=== PATIENT | female | born 1975 | race Caucasian/White ===

== ENCOUNTER 2019-05-28 14:09 | Emergency (ER) | payer SELFPAY ==
[2019-05-28] MEDS ORDERED: KETOROLAC TROMETHAMINE INJ/PF 30 MG/1 ML SDV IV ONE (15:09)
[2019-05-28] MEDS ORDERED: PROCHLORPERAZINE EDISYLATE INJ 10 MG/2 ML VIAL IV ONE (15:09)
[2019-05-28] MEDS ORDERED: DIPHENHYDRAMINE HCL 50 MG/ML VIAL IV ONE (15:09)
--- NOTE | 2019-05-28 15:11 | ER Document Report ---
ED Medical Screen (RME) - General Chief Complaint: Eye Pain Stated Complaint: EYE PAIN/DIZZINESS Time Seen by Provider: 05/28/19 15:01 - HPI Notes: 05/28/19 15:09 Patient is a 43-year-old female with a history of migraines who presents for 2 concerns. Patient states that she has had a migraine for the past week with light sensitivity and dizziness which is normal for her headaches. Patient states that this headache is not the worst of her life and did not start as a thunderclap. Overall her headache is pretty typical of previous migraines that is not being resolved with conservative measures. Patient states that she also has an irritated red eye that began this morning when she woke up, but patient has had matting to the eye over the past couple days and some discharge associated. She does not wear contact lenses. No fever. PHYSICAL EXAMINATION: GENERAL: Well-appearing, well-nourished and in no acute distress. A&Ox4. Answers questions appropriately. HEAD: Atraumatic, normocephalic. Non-tender. EYES: Pupils equal round and reactive to light, extraocular movements intact, sclera anicteric, rt eye injected, scant discharge. No nystagmus. NEUROLOGICAL: NIH 0. GCS 15. Cranial nerves grossly intact. Normal speech, normal gait. Normal sensory, motor exams. PSYCH: Normal mood, normal affect. SKIN: Warm, Dry, normal turgor, no rashes or lesions noted. - Related Data Allergies/Adverse Reactions: bee pollen Allergy (Verified 05/28/19 15:00) Past Medical History - Social History Chew tobacco use (# tins/day): No Drug Abuse: None Physical Exam - Vital signs Vitals: Temp Pulse Resp BP Pulse Ox 98.3 F 77 16 130/73 H 98 05/28/19 14:28 05/28/19 14:28 05/28/19 14:28 05/28/19 14:28 05/28/19 14:28 Course - Vital Signs Vital signs: Temp Pulse Resp BP Pulse Ox 98.3 F 77 16 130/73 H 98 05/28/19 14:28 05/28/19 14:28 05/28/19 14:28 05/28/19 14:28 05/28/19 14:28
[2019-05-28] MEDS ORDERED: TETRACAINE HCL 0.5% OPH SOLN 4 ML ONE (16:53)
[2019-05-28] MEDS ORDERED: TETRACAINE HCL 0.5% OPH SOLN 4 ML OD ONE (17:03)
[2019-05-28] MEDS ORDERED: POLYMYXIN B SULFATE/TMP OPH SOLN (10 ML/ER DISP) OD PRN (17:09)
[2019-05-28] MEDS ORDERED: DEXAMETHASONE SOD PHOS INJ 10 MG/1 ML VIAL IV ONE (17:13)
--- NOTE | 2019-05-28 17:16 | ER Document Report ---
ED General - General Chief Complaint: Eye Pain Stated Complaint: EYE PAIN/DIZZINESS Time Seen by Provider: 05/28/19 15:01 Notes: 43-year-old female presents emergency department complaining of 1 of her typical migraines for the past week but is been getting progressively worse. Denies any fevers or neck pain. States it is not the worst when she is ever had and it did not start as a thunderclap type headache. Complains that she has had some crusting of her right eye for the past week but today she woke up and it was crusted shut and she has pain when she moves her eye. Denies any blurry vision after she complains the crusting away. States it feels like a stabbing pain in the back of her eye. No trauma to the eye, denies wearing contacts. Also states that she has been having some dizziness and disequilibrium for the past week, today it was bad enough that it caused her to fall down the steps. Patient states the only thing she had from it was some left elbow pain and it does not hurt to move her elbow. TRAVEL OUTSIDE OF THE [place] IN LAST 30 DAYS: No - Related Data Allergies/Adverse Reactions: bee pollen Allergy (Verified 05/28/19 15:00) Past Medical History - General Information source: Patient - Social History Smoking Status: Never Smoker Chew tobacco use (# tins/day): No Frequency of alcohol use: Occasional Drug Abuse: None Family History: Reviewed & Not Pertinent Patient has suicidal ideation: No Patient has homicidal ideation: No Review of Systems - Review of Systems Constitutional: No symptoms reported EENT: See HPI Cardiovascular: See HPI, Dizziness - More disequilibrium than true dizziness. Respiratory: No symptoms reported Gastrointestinal: No symptoms reported Neurological/Psychological: See HPI -: Yes All other systems reviewed and negative Physical Exam - Vital signs Vitals: Temp Pulse Resp BP Pulse Ox 98.3 F 77 16 130/73 H 98 05/28/19 14:28 05/28/19 14:28 05/28/19 14:28 05/28/19 14:28 05/28/19 14:28 Interpretation: Normal - Notes Notes: GENERAL: Alert, interacts well. No acute distress. HEAD: Normocephalic, atraumatic EYES: Pupils equal, round and reactive to light, extraocular movements intact. Conjunctival injection on the right-hand side, some clear discharge noted, no crusting. Slit-lamp examination does not reveal any cell and flare in the anterior chamber, pain with movement of her eye until tetracaine is instilled, after tetracaine is instilled all pain has completely resolved. No pain with extraocular movements after tetracaine is instilled. No floor seen uptake on ex amination. No hyphema. No hypopyon. ENT: Oral mucosa moist, tongue midline. Clear fluid behind bulging tympanic membranes, injected tympanic membranes. NECK: Full range of motion, supple, trachea midline. LUNGS: Clear to auscultation bilaterally, no wheezes, rales or rhonchi, no respiratory distress. HEART: Regular rate and rhythm, no murmurs, gallops, rubs. ABDOMEN: Soft, nontender, nondistended, bowel sounds present in all 4 quadrants. EXTREMITIES: Moves all 4 extremities spontaneously, no edema, radial and dorsalis pedis pulses 2/4 bilaterally. No cyanosis. NEUROLOGICAL: Alert and oriented x3, normal speech, cranial nerves II through XII grossly intact, biceps and patellar DTRs 2+ bilaterally. [id number] and tauh-zt-apeh test intact, able to heel walk, toe walk and turn in a [place] without any dizziness or off-balance. PSYCH: Normal mood, normal affect. SKIN: Warm, Dry, normal turgor, no rashes or lesions noted. Course - Re-evaluation Re-evalutation: 05/28/19 17:13 Headache is completely resolved after medications, will give Decadron to prevent rebound headache. Silhouette examination consistent with conjunctivitis, treat with Polytrim eyedrops. No evidence of corneal abrasion. No evidence of orbital cellulitis as there is no pain with extraocular movement after her conjunctiva is numbed with tetracaine. Discharged to home. 05/28/19 17:15 The clear fluid behind her tympanic membranes is probably what is causing her to feel off balance. This is resolved as her headache has resolved. Patient will be treated with Nasonex and Claritin. - Vital Signs Vital signs: Temp Pulse Resp BP Pulse Ox 98.3 F 77 16 130/73 H 98 05/28/19 14:28 05/28/19 14:28 05/28/19 14:28 05/28/19 14:28 09/30/19 14:28 Discharge - Discharge Clinical Impression: Intractable migraine Qualifiers: Migraine type: without aura Status migrainosus presence: with status migrainosus Qualified Code(s): G43.011 - Migraine without aura, intractable, with status migrainosus Acute conjunctivitis, right eye Qualifiers: Acute conjunctivitis type: bacterial Qualified Code(s): H10.31 - Unspecified acute conjunctivitis, right eye Acute serous otitis media of both ears Qualifiers: Recurrence: non-recurrent Qualified Code(s): H65.03 - Acute serous otitis media, bilateral Condition: Stable Disposition: HOME, SELF-CARE Additional Instructions: Conjunctivitis You have an infection in your eye, commonly known as "pink eye." Conjunctivitis causes redness, mild discomfort, itching, and mattering on the eyelids. It is very contagious, so you must be careful to wash your hands after touching your face so you don't pass the infection on to others. Conjunctivitis is caused by both viruses and bacteria. It usually responds quickly to treatment with antibiotic drops. These should be placed in the eye as prescribed (usually every three to four hours while you're awake). If you wear contact lenses, don't put them in your eyes until the infection is cleared and you are no longer using the drops (unless your doctor advises you otherwise). Throw away any eye make-up that you have been using. It will harbor the infection. Should you develop increasing eye pain, severe swelling, decreased vision, or fail to improve as expected, please return for re-examination. Please use nasal saline rinses such as a NetiPot or NeilMed Sinus Rinses. 1 squirt of Nasonex per nostril twice a day to help decrease the fluid in your eyes. Please take Claritin as directed on the box [id number]. Prescriptions: Loratadine [Claritin 10 mg Tablet] 10 mg PO DAILY #30 tablet Mometasone Furoate [Nasonex] 1 spray NS Q12 #1 spray.pump
[2019-05-28 17:42] VITALS: BP 122/65
== END 2019-05-28 17:42 | disposition home or self-care (01) ==
LOC: ER 14:09
DX: H65.03 Acute serous otitis media, bilateral (principal); H10.31 Unspecified acute conjunctivitis, right eye; G43.011 Migraine without aura, intractable, with status migrainosus; R42 Dizziness and giddiness
CPT/HCPCS: J1200; J3490 ×2; J1885; J0780; J1100

== ENCOUNTER 2019-05-31 05:27 | Emergency (ER) | payer SELFPAY ==
[2019-05-31] MEDS ORDERED: TETRACAINE HCL 0.5% OPH SOLN 4 ML OD ONE (06:51)
[2019-05-31] MEDS ORDERED: HYDROCODONE/ACETAMINOPHEN 5-325 MG TABLET PO ONE (06:52)
--- NOTE | 2019-05-31 07:43 | ER Document Report ---
ED General - General Chief Complaint: Eye Pain Stated Complaint: EYE PAIN Time Seen by Provider: 05/31/19 06:37 TRAVEL OUTSIDE OF THE [place] IN LAST 30 DAYS: No - Related Data Allergies/Adverse Reactions: bee pollen Allergy (Verified 05/28/19 15:00) Past Medical History - Social History Smoking Status: Never Smoker Family History: Reviewed & Not Pertinent Patient has suicidal ideation: No Patient has homicidal ideation: No Physical Exam - Vital signs Vitals: Temp Pulse Resp BP Pulse Ox 97.6 F 71 16 119/78 96 05/31/19 05:40 05/31/19 05:40 05/31/19 05:40 05/31/19 05:40 05/31/19 05:40 Course - Vital Signs Vital signs: Temp Pulse Resp BP Pulse Ox 97.6 F 71 16 119/78 96 05/31/19 05:40 05/31/19 05:40 05/31/19 05:40 05/31/19 05:40 05/31/19 05:40 Discharge - Discharge Clinical Impression: Conjunctivitis Qualifiers: Conjunctivitis type: acute Acute conjunctivitis type: unspecified Laterality: right Qualified Code(s): H10.31 - Unspecified acute conjunctivitis, right eye Condition: Stable Disposition: HOME, SELF-CARE Instructions: Conjunctivitis ([facility]) Referrals: ANNIKA CHERY DO [ACTIVE STAFF] - Follow up as needed
[2019-05-31 07:59] VITALS: BP 111/69
--- NOTE | 2019-05-31 08:16 | ER Document Report ---
ED General - General Chief Complaint: Eye Pain Stated Complaint: EYE PAIN Time Seen by Provider: 05/31/19 06:37 Primary Care Provider: ANNIKA CHERY DO [ACTIVE STAFF] - Follow up as needed TRAVEL OUTSIDE OF THE [place] IN LAST 30 DAYS: No - HPI Notes: 43-year-old female who presents with right eye pain redness and conjunctivitis. Patient was seen here roughly 4 days ago at which time she was diagnosed and treated for a migraine as well as conjunctivitis. Given a prescription for Polytrim drops. She presented with gradual onset right sided eye pain and redness. Since then she has had progressive pain and redness and clear drainage. Denies any contact lens use, no corrective lenses. No injury. No history of glaucoma. Headache had resolved but she has severe right medial punctal pain and overall eye pain and redness. No other modifying factors, no other associated symptoms, no other provocative or palliative factors. - Related Data Allergies/Adverse Reactions: bee pollen Allergy (Verified 05/28/19 15:00) Past Medical History - Social History Smoking Status: Never Smoker Family History: Reviewed & Not Pertinent Patient has suicidal ideation: No Patient has homicidal ideation: No - Medical History Notes: No history of diabetes Review of Systems - Review of Systems Notes: Review of systems as in the history of present illness, otherwise negative x 10 systems. Physical Exam - Vital signs Vitals: Temp Pulse Resp BP Pulse Ox 97.6 F 71 16 119/78 96 05/31/19 05:40 05/31/19 05:40 05/31/19 05:40 05/31/19 05:40 05/31/19 05:40 - Notes Notes: General: Well developed . HEENT: Normocephalic, atraumatic. Pupils equal round reactive to light. No JVD. Chest: No trauma. Respiratory: Good air exchange, normal excursion. Cardiac: Regular rhythm. No murmurs or gallops. Abdomen: Soft, benign. Nondistended. Nontender. Back: No asymmetry or gross abnormality. Motor: Grossly normal power and tone. Neurologic: Alert, nonfocal. Cranial nerves II-12 are intact. Sensation intact. Vascular: Well perfused. Normal peripheral pulses. Skin: No petechiae or purpura. Eye: Right eye shows substantial conjunctival injection. Extraocular movements are intact. Pupil reactive. No hyphema, no hypopyon noted. Course - Re-evaluation Re-evalutation: 05/31/19 08:15 43-year-old female with severe conjunctivitis, unclear etiology. Additional ophthalmologic exam is completed. Patient underwent tetracaine staining. IOP is 13, floor seen staining shows no dye uptake, slit-lamp exam is difficult to achieve as she is uncooperative due to discomfort, no obvious cell or flare. Patient does not appear to have limbal sparing. There is concern over the potential for iritis. Patient is referred to ophthalmology this morning as an outpatient for continued work-up and evaluation. - Vital Signs Vital signs: Temp Pulse Resp BP Pulse Ox 97.7 F 60 16 111/69 98 05/31/19 07:57 05/31/19 07:57 05/31/19 05:40 05/31/19 07:57 05/31/19 07:57 Discharge - Discharge Clinical Impression: Conjunctivitis Qualifiers: Conjunctivitis type: acute Acute conjunctivitis type: unspecified Laterality: right Qualified Code(s): H10.31 - Unspecified acute conjunctivitis, right eye Condition: Stable Disposition: HOME, SELF-CARE Instructions: Conjunctivitis ([facility]) Referrals: ANNIKA CHERY DO [ACTIVE STAFF] - Follow up as needed
== END 2019-05-31 07:59 | disposition home or self-care (01) ==
LOC: ER 05:27
DX: H10.31 Unspecified acute conjunctivitis, right eye (principal); H57.11 Ocular pain, right eye
CPT/HCPCS: J3490

== ENCOUNTER → 2019-07-11 | Outpatient (CLI) | payer OTHER ==
[2019-07-11 08:43] LABS: ABSOLUTE EOSINOPHILS # (AUTO) 0.1 10^3/uL (0.0-0.6); ABSOLUTE LYMPHOCYTES (AUTO) 1.3 10^3/uL (0.5-4.7); ABSOLUTE MONOCYTES (AUTO) 0.3 10^3/uL (0.1-1.4); ABSOLUTE NEUT (AUTO) 2.8 10^3/uL (1.7-8.2); BASOPHILS % (AUTO) 0.6 % (0-2); EOSINOPHILS % (AUTO) 2.2 % (0-6); HEMATOCRIT 41.4 % (36.0-47.0); HEMOGLOBIN 14.6 g/dL (12.0-15.5); LYMPHOCYTES % (AUTO) 28.1 % (13-45); MEAN CORPUSCULAR HGB CONC 35.2 g/dL (32.0-36.0); MEAN CORPUSCULAR VOLUME 91 fl (80-97); MONOCYTES % (AUTO) 7.5 % (3-13); PLATELET COUNT 235 10^3/uL (150-450); RED BLOOD COUNT 4.55 10^6/uL (3.72-5.28); RED CELL DISTRIBUTION WIDTH 12.5 % (11.5-14.0); SEGMENTED NEUTROPHILS % (AUTO) 61.6 % (42-78); TOTAL CELLS COUNTED % (AUTO) 100 %; WHITE BLOOD COUNT 4.6 10^3/uL (4.0-10.5)
[2019-07-11 08:56] LABS: ALBUMIN 4.6 g/dL (3.5-5.0); ALKALINE PHOSPHATASE 90 U/L (38-126); ANION GAP 7 (5-19); ASPARTATE AMINO TRANSFERASE 29 U/L (14-36); BILIRUBIN,DIRECT 0.1 mg/dL (0.0-0.4); BILIRUBIN,TOTAL 0.7 mg/dL (0.2-1.3); BLOOD UREA NITROGEN 15 mg/dL (7-20); CALCIUM 9.3 mg/dL (8.4-10.2); CARBON DIOXIDE 30 mmol/L (22-30); CHLORIDE 101 mmol/L (98-107); GLUCOSE 119 mg/dL (75-110); POTASSIUM 4.6 mmol/L (3.6-5.0); TOTAL PROTEIN 7.5 g/dL (6.3-8.2); TRIGLYCERIDES 131 mg/dL (<150); URIC ACID 5.2 mg/dL (2.5-7.5)
[2019-07-11 09:07] LABS: DIRECT LDL 188 mg/dL (<100)
[2019-07-11 09:13] LABS: FREE T4 (FREE THYROXINE) 0.98 ng/dL (0.78-2.19)
[2019-07-11 09:27] LABS: THYROID STIMULATING HORMONE 0.8 uIU/mL (0.47-4.68)
== END ==
LOC: CCC 07:10
DX: E78.5 Hyperlipidemia, unspecified (principal)
CPT/HCPCS: 36415; 80053; 80061; 83036; 84439; 84443; 84550; 85025

== ENCOUNTER 2019-08-05 14:51 | Emergency (ER) | payer OTHER ==
[2019-08-05] MEDS ORDERED: KETOROLAC TROMETHAMINE INJ/PF 30 MG/1 ML SDV IV ONE (15:43)
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
[2019-08-05] MEDS ORDERED: DIAZEPAM INJ 10 MG/2 ML DISP.SYRIN IV ONE ×2 (16:16→17:56)
--- NOTE | 2019-08-05 17:16 | RADIOLOGY REPORT (SQ) ---
EXAM DESCRIPTION: MRI CERVICAL SPINE WITHOUT COMPLETED DATE/TIME: 08/05/2019 4:55 pm REASON FOR STUDY: left arm numbness, hx. bulging disc COMPARISON: None. TECHNIQUE: Sagittal and Axial imaging includes T1, T2, STIR and gradient echo sequences. LIMITATIONS: None. FINDINGS: ALIGNMENT: Normal. VERTEBRAE: Intact. BONE MARROW: Normal. No marrow replacement or reactive changes. DISCS: 6 mm focal disc protrusion in the left lateral recess at the C6-7 level with compression of th e lateral aspect of the spinal cord and severe neural foraminal stenosis -compression of the exiting left C7 nerve root. HARDWARE: None in the spine. CORD AND BASE OF BRAIN: No cord signal abnormality is identified. SOFT TISSUES: No soft tissue masses. C1-C2: No significant spinal stenosis. C2-C3: No significant spinal stenosis or exit foraminal stenosis. C3-C4: No significant spinal stenosis or exit foraminal stenosis. C4-C5: No significant spinal stenosis or exit foraminal stenosis. C5-C6: No significant spinal stenosis or exit foraminal stenosis. C6-C7: 6 mm focal disc protrusion in the left lateral recess at the C6-7 level with compression of th e lateral aspect of the spinal cord and severe neural foraminal stenosis -compression of the exiting left C7 nerve root. C7-T1: No significant spinal stenosis or exit foraminal stenosis. UPPER THORACIC: Incompletely imaged. No significant spinal stenosis or exit foraminal stenosis. OTHER: No other significant finding. IMPRESSION: 6 mm focal disc protrusion in the left lateral recess at the C6-7 level with compression of the lateral aspect of the spinal cord and severe neural foraminal stenosis -compression of the ex iting left C7 nerve root.No cord signal abnormality is identified. TECHNICAL DOCUMENTATION: JOB ID: [id number] [place]-[id number] 2010 [employer]- All Rights Reserved Reading location - IP/workstation name: [employer]
[2019-08-05] MEDS ORDERED: METHYLPREDNISOLONE INJ 125 MG/2 ML SDV IV ONE (17:56)
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
[2019-08-05 19:04] VITALS: BP 101/63
== END 2019-08-05 19:02 | disposition home or self-care (01) ==
LOC: ER 14:51
DX: G54.2 Cervical root disorders, not elsewhere classified (principal); M48.02 Spinal stenosis, cervical region; R20.0 Anesthesia of skin; R20.2 Paresthesia of skin; Z91.030 Bee allergy status; F17.200 Nicotine dependence, unspecified, uncomplicated
CPT/HCPCS: 96376; 99283; 96374; 96375; 72141; J3360; J2930; J1885

== ENCOUNTER 2019-08-06 12:09 | Emergency (ER) | payer OTHER | END 2019-08-06 13:55 | disposition left against medical advice (07) | LOC: ER 12:09 | DX: Z53.21 Procedure and treatment not carried out due to patient leaving prior to being seen by health care provider (principal) ==